=== PATIENT | female | born 1985 | race African-American/Black ===

== ENCOUNTER 2023-04-13 10:26 | Inpatient (IN) | payer MEDICAID ==
[~2023-04-13] VITALS: Ht 162.6 cm; Wt 69.0 kg
[2023-04-13] MEDS ORDERED: DiphenhydrAMINE HCL 50 MG/ML VIAL IM ONE (12:15)
[2023-04-13] MEDS ORDERED: HALOPERIDOL LACTATE 5 MG/ML VIAL IM ONE (12:15)
[2023-04-13] MEDS ORDERED: LORazepam 2 MG/ML VIAL IM ONE (12:15)
[2023-04-13 13:16] VITALS: BP 140/79
[2023-04-13] MEDS: OLANZapine 5 MG RAPDIS TABLET PO SCH (21:13)
[2023-04-13] MEDS: LITHIUM CARBONATE 450 MG ER TABLET PO SCH (21:13)
[2023-04-14 07:39] LABS: BASOPHILS % (AUTO) 0.2 % (0.0-2.0); EOSINOPHILS % (AUTO) 1.9 % (1.0-6.0); HEMATOCRIT 37.6 % (36-46); HEMOGLOBIN 12.4 g/dL (12.0-16.0); LYMPHOCYTES # (AUTO) 0.9 K/uL (1.0-4.8); LYMPHOCYTES % (AUTO) 21.3 % (22.0-44.0); MEAN CORPUSCULAR HEMOGLOBIN 30.1 pg (26.0-34.0); MEAN CORPUSCULAR HGB CONC 32.9 G/dL (31.0-37.0); MEAN CORPUSCULAR VOLUME 92 fL (80-100); MONOCYTES # (AUTO) 0.8 K/uL (0.1-1.0); NEUTROPHILS # (AUTO) 2.6 K/uL (1.8-7.7); NEUTROPHILS % (AUTO) 58.6 % (40.0-70.0); PLATELET COUNT (AUTO) 299 K/uL (150-450); RED CELL DISTRIBUTION WIDTH 14.2 % (11.5-14.5)
[2023-04-14] MEDS ORDERED: GuaiFENesin/D-METHORPHAN [SUGAR-FREE] 200-20MG/10 ML SYRUP UDCUP PO PRN (07:45)
[2023-04-14] MEDS ORDERED: PETROLATUM,WHITE 28 GM JELLY TP PRN (07:45)
[2023-04-14] MEDS ORDERED: DOCUSATE SODIUM 100 MG CAPSULE PO PRN (07:45)
[2023-04-14] MEDS ORDERED: CloNIDine HCL 0.1 MG TABLET PO PRN (07:45)
[2023-04-14] MEDS ORDERED: LOPERAMIDE HCL 2 MG CAPSULE PO PRN (07:45)
[2023-04-14] MEDS ORDERED: ACETAMINOPHEN 325 MG TABLET PO PRN (07:45)
[2023-04-14] MEDS ORDERED: MAGNESIUM HYDROXIDE SUSPENSION 30 ML UDCUP PO PRN (07:45)
[2023-04-14] MEDS ORDERED: ONDANSETRON HCL 4 MG TABLET PO PRN (07:45)
[2023-04-14] MEDS ORDERED: MAG HYDROX/AL HYDROX/SIMETH ES 30 ML SUSPENSION UDCUP PO PRN (07:45)
[2023-04-14] MEDS ORDERED: ALBUTEROL SULFATE HFA 90 MCG/PUFF 8 GM INHALER IH PRN (07:45)
[2023-04-14] MEDS ORDERED: IBUPROFEN 400 MG TABLET PO PRN (07:45)
[2023-04-14] MEDS ORDERED: NICOTINE 14 MG/24 HOUR PATCH TD PRN (07:45)
[2023-04-14 07:57] LABS: HEMOGLOBIN A1C 5.4 % (3.8-5.6)
[2023-04-14] MEDS: OLANZapine 5 MG RAPDIS TABLET PO SCH ×2 (08:03→20:22)
[2023-04-14 08:14] VITALS: BP 112/75
[2023-04-14 08:26] LABS: ALANINE AMINOTRANSFERASE 56 U/L (12-78); ALBUMIN 3.2 g/dL (3.4-5.0); ALKALINE PHOSPHATASE 73 U/L (46-116); ANION GAP 11 mmol/L (8-16); ASPARTATE AMINOTRANSFERASE 29 U/L (15-37); BILIRUBIN,TOTAL 0.5 mg/dL (0.1-1.0); CALCIUM, TOTAL 8.9 mg/dL (8.8-10.5); CARBON DIOXIDE 24 mmol/L (22-29); CHLORIDE 102 mmol/L (98-107); CHOLESTEROL 314 mg/dL (131-200); FREE T4 (FREE THYROXINE) 0.89 ng/dL (0.76-1.46); GLOMERULAR FILTR. RATE CALC > 60 mL/min (>60); GLUCOSE,RANDOM 96 mg/dL (70-110); HCG,QUANTITATIVE < 1 mIU/mL (0-6); POTASSIUM 4.1 mmol/L (3.5-5.1); SODIUM SERUM 137 mmol/L (136-145); THYROID STIMULATING HORMONE 0.44 uIU/mL (0.36-3.74); TOTAL PROTEIN, SERUM 7.5 g/dL (6.4-8.2); TRIGLYCERIDES 70 mg/dL (15-150)
[2023-04-14 08:41] LABS: CHOL/HDL RATIO 1.5 (3.9-5.7); HDL CHOLESTEROL 211 mg/dL (40-60); LDL CHOL (CALC.) 89 mg/dL (0-130)
[2023-04-14 20:03] VITALS: BP 120/72
[2023-04-14] MEDS: LITHIUM CARBONATE 450 MG ER TABLET PO SCH (20:18)
[2023-04-15 07:15] VITALS: BP 111/79
[2023-04-15] MEDS: HALOPERIDOL 5 MG TABLET PO PRN (07:28)
[2023-04-15] MEDS: LORazepam 2 MG TABLET PO PRN (07:28)
[2023-04-15] MEDS: OLANZapine 5 MG RAPDIS TABLET PO SCH ×2 (08:03→21:04)
[2023-04-15 08:55] VITALS: BP 100/65
[2023-04-15] MEDS: LACTOBACILLUS ACIDOPHILUS/BULGARICUS GRANULES PACKET PO SCH ×2 (10:15→16:49)
[2023-04-15] MEDS: MetroNIDAZOLE 500 MG TABLET PO SCH ×2 (13:00→16:49)
[2023-04-15 16:09] LABS: C.DIFF GDH ANTIGEN, Stool Negative (Negative); C.DIFF TOXINS A&B, Stool Negative (Negative)
[2023-04-15] MEDS: LITHIUM CARBONATE 450 MG ER TABLET PO SCH (20:27)
[2023-04-16] MEDS: MetroNIDAZOLE 500 MG TABLET PO SCH ×3 (08:29→17:03)
[2023-04-16] MEDS: LACTOBACILLUS ACIDOPHILUS/BULGARICUS GRANULES PACKET PO SCH ×2 (08:30→17:03)
[2023-04-16] MEDS: OLANZapine 5 MG RAPDIS TABLET PO SCH ×2 (08:31→20:55)
[2023-04-16] MEDS ORDERED: HALOPERIDOL LACTATE 5 MG/ML VIAL IM ONE (09:30)
[2023-04-16] MEDS ORDERED: DiphenhydrAMINE HCL 50 MG/ML VIAL IM ONE (09:30)
[2023-04-16] MEDS ORDERED: LORazepam 2 MG/ML VIAL IM ONE (09:30)
[2023-04-16] MEDS ORDERED: HALOPERIDOL LACTATE 5 MG/ML VIAL ONE (09:31)
[2023-04-16] MEDS ORDERED: LORazepam 2 MG/ML VIAL ONE (09:31)
[2023-04-16] MEDS ORDERED: DiphenhydrAMINE HCL 50 MG/ML VIAL ONE (09:31)
[2023-04-16 20:32] VITALS: BP 103/62
[2023-04-16] MEDS: LITHIUM CARBONATE 450 MG ER TABLET PO SCH (20:54)
[2023-04-17] MEDS: OLANZapine 5 MG RAPDIS TABLET PO SCH ×2 (09:20→20:07)
[2023-04-17] MEDS: LACTOBACILLUS ACIDOPHILUS/BULGARICUS GRANULES PACKET PO SCH ×2 (09:21→16:49)
[2023-04-17] MEDS: MetroNIDAZOLE 500 MG TABLET PO SCH ×3 (09:21→16:49)
[2023-04-17] MEDS: HALOPERIDOL 5 MG TABLET PO PRN (09:21)
[2023-04-17] MEDS: LORazepam 2 MG TABLET PO PRN ×2 (09:21→18:31)
[2023-04-17 20:02] VITALS: BP 109/63
[2023-04-17] MEDS: LITHIUM CARBONATE 450 MG ER TABLET PO SCH (20:06)
[2023-04-18] MEDS: LACTOBACILLUS ACIDOPHILUS/BULGARICUS GRANULES PACKET PO SCH ×2 (08:11→16:50)
[2023-04-18] MEDS: MetroNIDAZOLE 500 MG TABLET PO SCH ×3 (08:11→16:44)
[2023-04-18] MEDS: OLANZapine 5 MG RAPDIS TABLET PO SCH ×2 (08:13→21:16)
[2023-04-18 20:06] LABS: OVA AND PARASITES EXAM Final report
[2023-04-18] MEDS: LITHIUM CARBONATE 450 MG ER TABLET PO SCH (21:15)
[2023-04-19 04:38] VITALS: BP 101/63
[2023-04-19] MEDS: OLANZapine 5 MG RAPDIS TABLET PO SCH ×2 (08:07→20:06)
[2023-04-19] MEDS: LACTOBACILLUS ACIDOPHILUS/BULGARICUS GRANULES PACKET PO SCH ×2 (08:07→16:27)
[2023-04-19] MEDS: MetroNIDAZOLE 500 MG TABLET PO SCH ×3 (08:07→16:27)
[2023-04-19] MEDS: LORazepam 2 MG TABLET PO PRN ×2 (10:48→16:53)
[2023-04-19 20:01] VITALS: BP 108/60
[2023-04-19] MEDS: LITHIUM CARBONATE 450 MG ER TABLET PO SCH (20:06)
[2023-04-19] MEDS: ZOLPIDEM TARTRATE 10 MG TABLET PO PRN (20:26)
[2023-04-20 08:13] VITALS: BP 96/58
[2023-04-20] MEDS: OLANZapine 5 MG RAPDIS TABLET PO SCH ×2 (08:31→20:24)
[2023-04-20] MEDS: LACTOBACILLUS ACIDOPHILUS/BULGARICUS GRANULES PACKET PO SCH ×2 (08:32→16:09)
[2023-04-20] MEDS: LORazepam 2 MG TABLET PO PRN (16:09)
[2023-04-20 20:00] VITALS: BP 100/70
[2023-04-20] MEDS: LITHIUM CARBONATE 450 MG ER TABLET PO SCH (20:24)
[2023-04-20] MEDS: ZOLPIDEM TARTRATE 10 MG TABLET PO PRN (20:24)
[2023-04-20 23:53] VITALS: BP 81/52
[2023-04-21 06:35] VITALS: BP 107/62
[2023-04-21] MEDS: LACTOBACILLUS ACIDOPHILUS/BULGARICUS GRANULES PACKET PO SCH ×2 (08:05→16:23)
[2023-04-21] MEDS: OLANZapine 5 MG RAPDIS TABLET PO SCH ×2 (08:05→20:32)
[2023-04-21 08:22] VITALS: BP 120/82
[2023-04-21] MEDS: LORazepam 2 MG TABLET PO PRN (18:59)
[2023-04-21 20:21] VITALS: BP 100/68
[2023-04-21] MEDS: LITHIUM CARBONATE 450 MG ER TABLET PO SCH (20:32)
[2023-04-22 08:18] VITALS: BP 120/76
[2023-04-22] MEDS: LACTOBACILLUS ACIDOPHILUS/BULGARICUS GRANULES PACKET PO SCH ×2 (09:00→16:19)
[2023-04-22] MEDS: OLANZapine 5 MG RAPDIS TABLET PO SCH ×2 (09:54→20:53)
[2023-04-22] MEDS: LORazepam 2 MG TABLET PO PRN (15:44)
[2023-04-22] MEDS: LITHIUM CARBONATE 450 MG ER TABLET PO SCH (20:54)
[2023-04-22 21:44] VITALS: BP 101/69
[2023-04-23] MEDS: OLANZapine 5 MG RAPDIS TABLET PO SCH ×2 (09:08→21:43)
[2023-04-23 10:04] VITALS: BP 96/61
[2023-04-23] MEDS: LORazepam 2 MG TABLET PO PRN (15:51)
[2023-04-23] MEDS: LITHIUM CARBONATE 450 MG ER TABLET PO SCH (21:00)
[2023-04-24] MEDS: OLANZapine 5 MG RAPDIS TABLET PO SCH ×2 (08:04→20:07)
[2023-04-24 08:17] VITALS: BP 102/62
[2023-04-24] MEDS: LORazepam 2 MG TABLET PO PRN (17:32)
[2023-04-24] MEDS: LITHIUM CARBONATE 450 MG ER TABLET PO SCH (20:07)
[2023-04-24 21:25] VITALS: BP 107/66
[2023-04-25 08:00] VITALS: BP 114/62
[2023-04-25] MEDS: OLANZapine 5 MG RAPDIS TABLET PO SCH ×2 (08:12→20:04)
[2023-04-25] MEDS: LORazepam 2 MG TABLET PO PRN ×2 (08:15→20:04)
[2023-04-25 20:03] VITALS: BP 106/63
[2023-04-25] MEDS: LITHIUM CARBONATE 450 MG ER TABLET PO SCH (20:04)
[2023-04-26] MEDS ORDERED: LITH450CRT PO (05:36)
[2023-04-26] MEDS ORDERED: OLAN5TAB94 PO (05:36)
[2023-04-26] MEDS: OLANZapine 5 MG RAPDIS TABLET PO SCH (08:03)
[2023-04-26 08:31] VITALS: BP 110/72
== END 2023-04-26 11:45 | disposition home or self-care (01) | DRG 753 ==
LOC: B3A 10:42
PROVIDERS: ADMIT Psychiatry & Neurology Psychiatry; ATTEND Psychiatry & Neurology Psychiatry
DX: F31.2 Bipolar disorder, current episode manic severe with psychotic features (principal); D64.9 Anemia, unspecified; F10.10 Alcohol abuse, uncomplicated; G47.00 Insomnia, unspecified; K59.00 Constipation, unspecified; F19.10 Other psychoactive substance abuse, uncomplicated; Z59.00 Homelessness unspecified
CPT/HCPCS: 80053; 80061; 80178; 83036; 84436; 84439; 84443; 84702; 85025; 86592; 87045; 87177; 87324; 87449; G0480; J1200; J1630; J2060

== ENCOUNTER 2023-05-18 20:10 | Emergency (ER) | payer MEDICAID ==
[~2023-05-18] VITALS: Ht 162.6 cm; Wt 56.8 kg
[~2023-05-18 20:10] MED LIST: LITH450CRT PO; OLAN5TAB94 PO
[2023-05-18 20:13] VITALS: TEMP 98.4
[2023-05-18] MEDS ORDERED: OLANZapine 5 MG RAPDIS TABLET PO ONE (21:00)
[2023-05-19] MEDS ORDERED: HALOPERIDOL LACTATE 5 MG/ML VIAL IM ONE (00:15)
[2023-05-19 04:50] VITALS: BP 111/63; PULSE 60; RESP 16
== END 2023-05-19 05:40 | disposition home or self-care (01) ==
LOC: EMS 20:12
DX: F31.9 Bipolar disorder, unspecified (principal); F20.9 Schizophrenia, unspecified; F10.90 Alcohol use, unspecified, uncomplicated; F12.90 Cannabis use, unspecified, uncomplicated; F15.90 Other stimulant use, unspecified, uncomplicated; F14.90 Cocaine use, unspecified, uncomplicated; F11.90 Opioid use, unspecified, uncomplicated
CPT/HCPCS: 99284; 96372; J1630

== ENCOUNTER 2023-05-19 06:14 | Inpatient (IN) | payer MEDICAID ==
[~2023-05-19] VITALS: Ht 162.6 cm; Wt 66.2 kg
[2023-05-19 06:42] LABS: BASOPHILS % (AUTO) 0.5 % (0.0-2.0); EOSINOPHILS % (AUTO) 4.3 % (1.0-6.0); HEMATOCRIT 35.8 % (36-46); LYMPHOCYTES # (AUTO) 1.5 K/uL (1.0-4.8); LYMPHOCYTES % (AUTO) 44.1 % (22.0-44.0); MEAN CORPUSCULAR HEMOGLOBIN 30.6 pg (26.0-34.0); MEAN CORPUSCULAR HGB CONC 33.6 G/dL (31.0-37.0); MEAN CORPUSCULAR VOLUME 91 fL (80-100); MONOCYTES # (AUTO) 0.4 K/uL (0.1-1.0); MONOCYTES % (AUTO) 11.3 % (2.0-9.0); NEUTROPHILS # (AUTO) 1.3 K/uL (1.8-7.7); NEUTROPHILS % (AUTO) 39.8 % (40.0-70.0); PLATELET COUNT (AUTO) 272 K/uL (150-450); RED BLOOD CELL COUNT(AUTO) 3.93 MIL/uL (4.00-5.20); RED CELL DISTRIBUTION WIDTH 14.1 % (11.5-14.5)
[2023-05-19 07:11] LABS: ALANINE AMINOTRANSFERASE 17 U/L (12-78); ALBUMIN 3.1 g/dL (3.4-5.0); ALKALINE PHOSPHATASE 53 U/L (46-116); ANION GAP 7 mmol/L (8-16); ASPARTATE AMINOTRANSFERASE 20 U/L (15-37); BILIRUBIN,TOTAL 0.3 mg/dL (0.1-1.0); CALCIUM, TOTAL 8.4 mg/dL (8.8-10.5); CARBON DIOXIDE 30 mmol/L (22-29); CHLORIDE 103 mmol/L (98-107); CREATININE 0.89 mg/dL (0.60-1.30); GLOMERULAR FILTR. RATE CALC > 60 mL/min (>60); GLUCOSE,RANDOM 155 mg/dL (70-110); HCG,QUANTITATIVE < 1 mIU/mL (0-6); SODIUM SERUM 140 mmol/L (136-145); THYROID STIMULATING HORMONE 0.59 uIU/mL (0.36-3.74); TOTAL PROTEIN, SERUM 6.5 g/dL (6.4-8.2)
[2023-05-19 07:14] LABS: LITHIUM < 0.20 mmol/L (0.60-1.20)
[2023-05-19 07:20] LABS: POTASSIUM 2.9 mmol/L (3.5-5.1)
[2023-05-19] MEDS ORDERED: POTASSIUM CHLORIDE 20 MEQ ER TABLET PO ONE (07:30)
[2023-05-19] MEDS ORDERED: QUEtiapine FUMARATE 100 MG TABLET PO PRN (10:00)
[2023-05-19 10:51] LABS: APPEARANCE,URINE HAZY (CLEAR); BILIRUBIN,URINE NEGATIVE (NEGATIVE); GLUCOSE, URINE (UA) NEGATIVE (NEGATIVE); KETONES,URINE NEGATIVE (NEGATIVE); LEUKOCYTE ESTERASE ,URINE NEGATIVE (NEGATIVE); NITRATE,URINE NEGATIVE (NEGATIVE); OCCULT BLOOD,URINE NEGATIVE (NEGATIVE); PROTEIN,URINE TRACE mg/dL (NEGATIVE); SPECIFIC GRAVITIY, URINE 1.019 (1.003-1.030); UROBILINOGEN,URINE <=1.0 mg/dL (<=1.0)
[2023-05-19 10:58] LABS: AMPHET/METH SCREEN,URINE POSITIVE (NEGATIVE); BARBITURATE SCREEN, URINE NEGATIVE (NEGATIVE); BENZODIAZEPINES SCREEN,URINE NEGATIVE (NEGATIVE); CANNABINOID SCREEN,URINE POSITIVE (NEGATIVE); COCAINE SCREEN,URINE NEGATIVE (NEGATIVE); METHADONE SCREEN, URINE NEGATIVE (NEGATIVE); OPIATE SCREEN,URINE NEGATIVE (NEGATIVE); PHENCYCLIDINE SCREEN,URINE NEGATIVE (NEGATIVE)
[2023-05-19 12:19] LABS: COVID AG,FIA SOURCE NASOPHARYNGEAL
[2023-05-19 15:05] VITALS: BP 102/58; PULSE 61; RESP 16; TEMP 97.6; O2SAT 97
[2023-05-19 20:07] VITALS: BP 106/68; PULSE 72; RESP 18; TEMP 98; O2SAT 99
[2023-05-20 08:38] VITALS: RESP 18
[2023-05-20] MEDS ORDERED: CloNIDine HCL 0.1 MG TABLET PO PRN (09:00)
[2023-05-20] MEDS ORDERED: ALBUTEROL SULFATE HFA 90 MCG/PUFF 8 GM INHALER IH PRN (09:00)
[2023-05-20] MEDS ORDERED: ACETAMINOPHEN 325 MG TABLET PO PRN (09:00)
[2023-05-20] MEDS ORDERED: DOCUSATE SODIUM 100 MG CAPSULE PO PRN (09:00)
[2023-05-20] MEDS ORDERED: ONDANSETRON HCL 4 MG TABLET PO PRN (09:00)
[2023-05-20] MEDS ORDERED: PETROLATUM,WHITE 28 GM JELLY TP PRN (09:00)
[2023-05-20] MEDS ORDERED: NICOTINE 14 MG/24 HOUR PATCH TD PRN (09:00)
[2023-05-20] MEDS ORDERED: LOPERAMIDE HCL 2 MG CAPSULE PO PRN (09:00)
[2023-05-20] MEDS ORDERED: MAG HYDROX/AL HYDROX/SIMETH ES 30 ML SUSPENSION UDCUP PO PRN (09:00)
[2023-05-20] MEDS ORDERED: MAGNESIUM HYDROXIDE SUSPENSION 30 ML UDCUP PO PRN (09:00)
[2023-05-20] MEDS ORDERED: GuaiFENesin/D-METHORPHAN [SUGAR-FREE] 200-20MG/10 ML SYRUP UDCUP PO PRN (09:00)
[2023-05-20] MEDS ORDERED: IBUPROFEN 400 MG TABLET PO PRN (09:00)
[2023-05-20] MEDS: LORazepam 2 MG TABLET PO PRN (09:09)
[2023-05-20] MEDS: OLANZapine 5 MG RAPDIS TABLET PO SCH ×2 (09:09→20:22)
[2023-05-20] MEDS: LITHIUM CARBONATE 450 MG ER TABLET PO SCH (20:22)
[2023-05-21 06:03] VITALS: BP 105/69; PULSE 73; RESP 18; TEMP 97.8; O2SAT 98
[2023-05-21 08:17] VITALS: RESP 18
[2023-05-21 08:32] LABS: CHOL/HDL RATIO 1.7 (3.9-5.7)
[2023-05-21] MEDS: OLANZapine 5 MG RAPDIS TABLET PO SCH ×2 (08:43→20:17)
[2023-05-21 20:12] VITALS: BP 122/66; PULSE 100; RESP 18; TEMP 97.5; O2SAT 97
[2023-05-21] MEDS: LITHIUM CARBONATE 450 MG ER TABLET PO SCH (20:18)
[2023-05-22] MEDS: OLANZapine 5 MG RAPDIS TABLET PO SCH ×2 (08:04→20:00)
[2023-05-22 08:36] VITALS: BP 103/61; PULSE 87; RESP 17; TEMP 97.7; O2SAT 96
[2023-05-22] MEDS: LITHIUM CARBONATE 450 MG ER TABLET PO SCH (20:00)
[2023-05-22 20:16] VITALS: BP 108/77; PULSE 80; RESP 18; TEMP 98; O2SAT 96
[2023-05-23 08:16] VITALS: BP 123/73; PULSE 78; RESP 16; TEMP 97.8; O2SAT 97
[2023-05-23] MEDS: OLANZapine 5 MG RAPDIS TABLET PO SCH ×2 (08:22→20:03)
[2023-05-23] MEDS: LITHIUM CARBONATE 450 MG ER TABLET PO SCH (20:03)
[2023-05-23] MEDS: LORazepam 2 MG TABLET PO PRN (20:04)
[2023-05-23 20:21] VITALS: BP 127/70; PULSE 76; RESP 18; TEMP 98; O2SAT 98
[2023-05-24 08:23] VITALS: RESP 18
[2023-05-24] MEDS: OLANZapine 5 MG RAPDIS TABLET PO SCH ×2 (08:41→21:14)
[2023-05-24 20:10] VITALS: BP 121/68; PULSE 80; RESP 18; TEMP 97.5; O2SAT 96
[2023-05-24] MEDS: ZOLPIDEM TARTRATE 10 MG TABLET PO PRN (21:14)
[2023-05-24] MEDS: LITHIUM CARBONATE 450 MG ER TABLET PO SCH (21:52)
[2023-05-25] MEDS: OLANZapine 5 MG RAPDIS TABLET PO SCH ×2 (08:15→20:33)
[2023-05-25 08:34] VITALS: BP 122/69; PULSE 80; RESP 16; TEMP 97.9; O2SAT 99
[2023-05-25 20:03] VITALS: BP 131/67; PULSE 82; RESP 18; TEMP 97.6; O2SAT 98
[2023-05-25] MEDS: LITHIUM CARBONATE 450 MG ER TABLET PO SCH (20:33)
[2023-05-25] MEDS: LORazepam 2 MG TABLET PO PRN (20:39)
[2023-05-25] MEDS: ZOLPIDEM TARTRATE 10 MG TABLET PO PRN (20:39)
[2023-05-26] MEDS: LORazepam 2 MG TABLET PO PRN (04:43)
[2023-05-26 04:45] VITALS: BP 120/66; PULSE 80; RESP 18; TEMP 98
[2023-05-26 07:45] LABS: EOSINOPHILS % (AUTO) 4.6 % (1.0-6.0); HEMATOCRIT 38.9 % (36-46); LYMPHOCYTES # (AUTO) 1.3 K/uL (1.0-4.8); LYMPHOCYTES % (AUTO) 54.3 % (22.0-44.0); MEAN CORPUSCULAR HEMOGLOBIN 30.8 pg (26.0-34.0); MEAN CORPUSCULAR HGB CONC 33.5 G/dL (31.0-37.0); MEAN CORPUSCULAR VOLUME 92 fL (80-100); MONOCYTES # (AUTO) 0.4 K/uL (0.1-1.0); NEUTROPHILS # (AUTO) 0.6 K/uL (1.8-7.7); NEUTROPHILS % (AUTO) 25.1 % (40.0-70.0); PLATELET COUNT (AUTO) 269 K/uL (150-450); RED BLOOD CELL COUNT(AUTO) 4.22 MIL/uL (4.00-5.20); RED CELL DISTRIBUTION WIDTH 14.1 % (11.5-14.5)
[2023-05-26] MEDS: OLANZapine 5 MG RAPDIS TABLET PO SCH ×2 (08:01→20:10)
[2023-05-26 08:41] VITALS: BP 103/65; PULSE 71; RESP 17; TEMP 97.3; O2SAT 100
[2023-05-26 20:03] VITALS: BP 118/63; PULSE 78; RESP 17; TEMP 97.6
[2023-05-26] MEDS: ZOLPIDEM TARTRATE 10 MG TABLET PO PRN (20:10)
[2023-05-26] MEDS: LITHIUM CARBONATE 450 MG ER TABLET PO SCH (20:10)
[2023-05-27 08:12] VITALS: RESP 17
[2023-05-27] MEDS: OLANZapine 5 MG RAPDIS TABLET PO SCH ×2 (09:07→20:21)
[2023-05-27] MEDS: LITHIUM CARBONATE 450 MG ER TABLET PO SCH (20:20)
[2023-05-28] MEDS: OLANZapine 5 MG RAPDIS TABLET PO SCH ×2 (08:24→20:53)
[2023-05-28 08:38] VITALS: BP 112/66; PULSE 74; RESP 16; TEMP 97.6; O2SAT 98
[2023-05-28 20:04] VITALS: BP 100/64; PULSE 69; RESP 18; TEMP 97.9; O2SAT 98
[2023-05-28] MEDS: LITHIUM CARBONATE 450 MG ER TABLET PO SCH (20:52)
[2023-05-28] MEDS: ZOLPIDEM TARTRATE 10 MG TABLET PO PRN (20:53)
[2023-05-29 08:10] VITALS: BP 116/79; PULSE 79; RESP 16; TEMP 97.6; O2SAT 98
[2023-05-29] MEDS: OLANZapine 5 MG RAPDIS TABLET PO SCH ×2 (08:18→20:29)
[2023-05-29 20:14] VITALS: BP 106/76; PULSE 84; RESP 17; TEMP 97.7; O2SAT 100
[2023-05-29] MEDS: LITHIUM CARBONATE 450 MG ER TABLET PO SCH (20:29)
[2023-05-30 08:18] VITALS: BP 105/62; PULSE 61; RESP 19; TEMP 98.3; O2SAT 97
[2023-05-30] MEDS: OLANZapine 5 MG RAPDIS TABLET PO SCH (08:36)
[2023-05-30] MEDS ORDERED: LITH450CRT PO ×2 (12:11→17:54)
[2023-05-30] MEDS ORDERED: OLAN10TA26 PO (12:12)
[2023-05-30] MEDS ORDERED: OLAN5TAB94 PO (17:54)
== END 2023-05-30 13:30 | disposition left against medical advice (07) | DRG 750 ==
LOC: EMS 06:16 → B3A 11:52 → B2S 05-29 12:38
PROVIDERS: ADMIT Psychiatry & Neurology Psychiatry; ATTEND Psychiatry & Neurology Psychiatry
DX: F25.0 Schizoaffective disorder, bipolar type (principal); R45.851 Suicidal ideations; D64.9 Anemia, unspecified; Z20.822 Contact with and (suspected) exposure to COVID-19; G47.00 Insomnia, unspecified; K59.00 Constipation, unspecified; F10.10 Alcohol abuse, uncomplicated; Y90.9 Presence of alcohol in blood, level not specified; F19.10 Other psychoactive substance abuse, uncomplicated; Z53.29 Procedure and treatment not carried out because of patient's decision for other reasons
CPT/HCPCS: 70450; 70486; 72125; 80053; 80061; 80178; 80307; 81003; 83036; 84132; 84443; 84702; 85025; 87081; 99285; G0480